=== PATIENT | male | born 1960 | race Caucasian/White ===

== ENCOUNTER 2017-09-18 19:09 | Emergency (ER) | payer OTHER ==
--- NOTE | 2017-09-18 19:13 | ED Physician Documentation ---
Dyspnea - HISTORIAN Historian: patient - HPI Stated Complaint: shortness of air Chief Complaint: Dyspnea Onset: days ago (3) Duration: continues in ED Initiating Event: upper respiratory illness (cough, wheezing ) Severity: moderate Exacerbated By: change in position, coughing Associated Symptoms: chills, productive cough. denies: fever, light-headedness , anxiety Further Comments: yes (He states over 3-5 days ago he started to notice he was coughing more frequently than usual. He has had some chills over the last day . He is coughing (productive). He has not taken his temp. He is not taking any OTC meds. He has not tried any other OTC meds. He does have his inhalers at home ) - ROS CONST: recent illness EYES/ENT: nasal congestion. denies: sore throat, nasal drainage GI/: denies: vomiting, nausea NEURO/PSYCH: denies: headache MS/SKIN/LYMPH: muscle aches. denies: rash, swollen glands, back pain - PAST HX Lung Disease: COPD PE Risk Factors: hypertension Surgeries/Procedures: other Immunizations: UTD Allergies/Adverse Reactions: Allergies Allergy/AdvReac Type Severity Reaction Status Date / Time levofloxacin [From Levaquin] Allergy Verified 09/18/17 19:36 - SOCIAL HX Smoking History: cigarettes Alcohol Use: none Drug Use: none - FAMILY HX Family History: none - REVIEWED ASSESSMENTS Nursing Assessment Reviewed: Yes Vitals Reviewed: Yes Dyspnea Physical Exam - EXAM General Appearance: alert, mild distress EENT: eye inspection normal, ENT inspection normal, pharynx normal, no signs of dehydration Respiratory: accessory muscle use (improved after breathing treatment ), rhonchi CVS: reg. rate & rhythm, no murmur Abdomen: non-tender, no distention Skin: color nml, no rash Extremities: non-tender, normal range of motion, no evidence of injury, no edema Neuro/Psych: oriented x3, CN's nml as tested, motor nml, sensation nml, mood/ affect nml Discharge Clincal Impression: Bronchitis Referrals: Primary Doctor,No [Primary Care Provider] - 2 Days Additional Instructions: 1. Medrol dose pack as directed starting tomorrow 2. Use inhalers as prescribed 3. Follow up with PCP in 2-4 days 4. Return to ER for increasing shortness of breath, fever or other concerns Condition: Stable Disposition: 01 HOME, SELF-CARE Decision to Admit: NO Date of Decison to Admit: 09/18/17 Decision Time: 20:29
[2017-09-18] MEDS: IPRATROPIUM/ALBUTEROL SULFATE 3 ML AMPUL.NEB NEB ONE (19:14)
[2017-09-18 19:22] LABS: BASOPHILS % 0.5 (0.0-1.5); EOSINOPHILS % 2.4 % (0.0-6.8); MEAN CORPUSCULAR HEMOGLOBIN 32.2 pg (28.0-34.0); MEAN CORPUSCULAR VOLUME 98.4 fl (80.0-100.0); MONOCYTES % 4.6 % (0.0-11.0); NEUTROPHILS # 6.3 # k/uL (1.4-7.7)
[2017-09-18 19:42] LABS: eGFR (African) > 60; eGFR (Non-African) > 60
[2017-09-18] MEDS: ALBUTEROL SULFATE 2.5 MG/3 ML AMPUL.NEB NEB ONE (20:15)
[2017-09-18] MEDS: methylPREDNISolone SOD SUCC 125 MG/2 ML VIAL IVP ONE (20:15)
[2017-09-18 20:59] VITALS: BP 110/68
--- NOTE | 2017-09-19 06:25 | Diagnostic Imaging Report ---
MATTHEW LIEBERMAN [facility] [address] [facility] [address] [place], [place]. [address] Report Submission Date: Sep 18, 2017 7:53:44 PM CDT Patient Study Name: RUFUS MCKEON Date: Sep 18, 2017 7:31:43 PM CDT Modality Type: DX Gender: M Description: CHEST : 62 Institution: [facility] Physician: MATTHEW LIEBERMAN Chest AP view Date of Exam: September 18, 2017. History: CHEST TIGHTNESS X 5 DAYS - (Hx) / ITS.REASON Shortness of breath Findings: The cardiac and mediastinal silhouettes are normal. The lungs are clear. There is no evidence of pulmonary infiltrate or pleural effusion. The trachea is midline and the aortic arch contour is normal. Pulmonary vascularity is within normal limits. Scattered bilateral round lung nodules most likely represent lung granulomata. Impression: No acute cardiopulmonary abnormality. Electronically signed on Sep 18, 2017 7:53:44 PM CDT by: Jerrica PATEL
== END 2017-09-18 20:58 | disposition home or self-care (01) ==
LOC: ED 19:09
DX: J40 Bronchitis, not specified as acute or chronic (principal); Z72.0 Tobacco use; J44.9 Chronic obstructive pulmonary disease, unspecified; I10 Essential (primary) hypertension
CPT/HCPCS: 71045; 80053; 82550; 82553; 83880; 84484; 85025; 85379; 85610; 93005; J2930; 94640; 96374; 99283